=== PATIENT | female | born 1955 | race African-American/Black ===

== ENCOUNTER 2018-09-16 22:36 | Inpatient (IN) | payer MEDICARE, OTHER ==
[~2018-09-16] VITALS: Ht 172.2 cm; Wt 60.3 kg
[2018-09-16] MEDS ORDERED: SODIUM CHLORIDE 0.9% 500 ML IV ONE (23:26)
[2018-09-17 00:30] LABS: BASOPHILS % 0.4 % (0.0-2.0); EOSINOPHILS % 3.2 % (0.0-5.0); HEMATOCRIT. 39.9 % (36.0-48.0); HEMOGLOBIN. 13.5 g/dL (12.0-16.0); LYMPHOCYTES % 20.6 % (20.0-50.0); MEAN CORPUSCULAR HEMOGLOBIN 29.7 pg (28.0-32.0); MEAN CORPUSCULAR VOLUME 88.2 fL (81.0-99.0); MEAN PLATELET VOLUME 9.2 fl (7.4-10.4); MONOCYTES % 4.8 % (2.0-8.0); PLATELET 322 x1000/uL (130-400); RED BLOOD CELL COUNT 4.53 mill/uL (4.2-5.4); RED CELL DISTRIBUTION WIDTH 13.5 % (11.6-14.6)
[2018-09-17 00:41] LABS: CLARITY URINE CLOUDY (CLEAR); COLOR URINE YELLOW (YELLOW); KETONES URINE NEGATIVE (NEGATIVE); LEUKOCYTE ESTERASE URINE 1+ (NEGATIVE); NITRITE URINE NEGATIVE (NEGATIVE); OCCULT BLOOD URINE NEGATIVE (NEGATIVE); PH URINE 5.5 (4.5-8.0); PROTEIN URINE NEGATIVE (NEGATIVE); SPECIFIC GRAVITY URINE 1.016 (1.005-1.030); UROBILINOGEN URINE 0.2 E.U./dL (0.2-1.0)
[2018-09-17 00:49] LABS: CHLORIDE 105 mEq/L (98-107)
[2018-09-17 00:59] LABS: CREATINE KINASE 85 IU/L (26-192); ETHANOL BLOOD < 10 mg/dL
[2018-09-17 01:00] LABS: METHADONE URINE SCREEN NEGATIVE (NEGATIVE); OPIATES URINE SCREEN NEGATIVE (NEGATIVE); PHENCYCLIDINE URINE SCREEN NEGATIVE (NEGATIVE)
[2018-09-17] MEDS ORDERED: LEVOFLOXACIN 500MG PREMIX 100 ML IV ONE (01:00)
[2018-09-17 01:07] LABS: *AMPHETAMINES SCREEN URINE NEGATIVE (NEGATIVE); *BARBITURATES SCREEN URINE NEGATIVE (NEGATIVE); *BENZODIAZEPINES SCREEN URINE NEGATIVE (NEGATIVE); *COCAINE SCREEN URINE NEGATIVE (NEGATIVE); CANNABINOID URINE SCREEN PRESUMTIVE POSITIVE (NEGATIVE)
[2018-09-17] MEDS ORDERED: ACETAMINOPHEN 650MG SUPP PR PRN (07:00)
[2018-09-17] MEDS ORDERED: GUAIFENESIN 200MG/10ML SUGAR FREE UDC PO PRN (07:00)
[2018-09-17] MEDS ORDERED: DOCUSATE SODIUM 100MG CAPSULE PO PRN (07:00)
[2018-09-17] MEDS ORDERED: HYDROCODONE/ACETAMINOPHEN 5/325MG TABLET PO PRN (07:00)
[2018-09-17] MEDS ORDERED: CLONIDINE 0.1MG TABLET PO PRN (07:00)
[2018-09-17] MEDS ORDERED: IPRATROPIUM/ALBUTEROL 0.5-3(2.5)MG/3ML NEB INH PRN (07:00)
[2018-09-17] MEDS ORDERED: ONDANSETRON HCL 4MG/2ML INJ IV PRN (07:00)
[2018-09-17] MEDS ORDERED: ACETAMINOPHEN 650MG/20.3ML UDC GT PRN (07:00)
[2018-09-17] MEDS ORDERED: MAGNESIUM/ALUMINUM HYDROXIDE/SIMETHICONE 30ML UDC PO PRN (07:00)
[2018-09-17] MEDS ORDERED: NA PHOS,M-B/NA PHOS,DI-BA ENEMA 118ML PR PRN (07:00)
[2018-09-17] MEDS ORDERED: ACETAMINOPHEN 325MG TABLET PO PRN (07:00)
[2018-09-17 10:00] VITALS: BP 132/60
[2018-09-17] MEDS ORDERED: DEXTROSE 50% WATER 50ML SYRINGE IV PRN (10:15)
[2018-09-17 10:30] VITALS: BP 132/60
[2018-09-17] MEDS ORDERED: LEVOFLOXACIN 500MG TABLET PO SCH (11:00)
[2018-09-17] MEDS: BLOOD SUGAR DIAGNOSTIC STRIP TEST SCH ×3 (11:54→20:31)
[2018-09-17] MEDS: SODIUM CHLORIDE 0.9% 1,000 ML IV SCH (12:03)
[2018-09-17 12:20] VITALS: BP 136/77
[2018-09-17] MEDS: ENOXAPARIN 40MG/0.4ML SYR SUBCUT SCH (12:35)
[2018-09-17] MEDS: INSULIN LISPRO 100 UNITS/ML SUBCUT SCH ×3 (12:40→20:40)
[2018-09-17] MEDS: SODIUM CHLORIDE 0.9% INJ 3ML FLUSH IVF SCH ×2 (14:00→20:31)
[2018-09-17] MEDS ORDERED: POTASSIUM CHLORIDE 20MEQ/PACKET PO NR (14:45)
[2018-09-17 15:10] LABS: CHLORIDE 109 mEq/L (98-107)
[2018-09-17 15:17] LABS: CREATINE KINASE 62 IU/L (26-192); CREATINE KINASE MB FRACTION < 1.0 ng/mL (0.5-3.6); HDL CHOLESTEROL 97 mg/dL (40-59); LDL CHOLESTEROL 101 mg/dL (5-100)
[2018-09-17 15:44] LABS: BASOPHILS % 0.8 % (0.0-2.0); HEMOGLOBIN. 11.6 g/dL (12.0-16.0); LYMPHOCYTES % 29.9 % (20.0-50.0); MEAN CORPUSCULAR HEMOGLOBIN 29.2 pg (28.0-32.0); MEAN CORPUSCULAR VOLUME 88.3 fL (81.0-99.0); MEAN PLATELET VOLUME 9.5 fl (7.4-10.4); MONOCYTES % 6.4 % (2.0-8.0); NEUTROPHILS % 58.9 % (40.0-76.0); PLATELET 266 x1000/uL (130-400); RED BLOOD CELL COUNT 3.96 mill/uL (4.2-5.4); RED CELL DISTRIBUTION WIDTH 13.4 % (11.6-14.6)
[2018-09-17 16:00] VITALS: BP 133/70
[2018-09-17 18:00] VITALS: BP 128/76
[2018-09-17 20:00] VITALS: BP 134/65
[2018-09-18] VITALS: BP 121/67
[2018-09-18] MEDS: SODIUM CHLORIDE 0.9% 1,000 ML IV SCH ×2 (03:35→19:20)
[2018-09-18 04:00] VITALS: BP 123/78
[2018-09-18 06:40] LABS: BASOPHILS % 0.6 % (0.0-2.0); EOSINOPHILS % 6.9 % (0.0-5.0); HEMATOCRIT. 38.8 % (36.0-48.0); HEMOGLOBIN. 12.7 g/dL (12.0-16.0); LYMPHOCYTES % 43.9 % (20.0-50.0); MEAN CORPUSCULAR HEMOGLOBIN 29.3 pg (28.0-32.0); MEAN CORPUSCULAR VOLUME 89.7 fL (81.0-99.0); MEAN PLATELET VOLUME 9.2 fl (7.4-10.4); MONOCYTES % 6.1 % (2.0-8.0); NEUTROPHILS % 42.5 % (40.0-76.0); PLATELET 239 x1000/uL (130-400); RED BLOOD CELL COUNT 4.32 mill/uL (4.2-5.4); RED CELL DISTRIBUTION WIDTH 13.5 % (11.6-14.6)
[2018-09-18] MEDS: SODIUM CHLORIDE 0.9% INJ 3ML FLUSH IVF SCH ×3 (06:42→22:37)
[2018-09-18] MEDS: BLOOD SUGAR DIAGNOSTIC STRIP TEST SCH ×4 (06:42→21:00)
[2018-09-18 06:46] LABS: CHLORIDE 109 mEq/L (98-107)
[2018-09-18] MEDS: INSULIN LISPRO 100 UNITS/ML SUBCUT SCH ×4 (06:50→22:33)
[2018-09-18 06:56] LABS: CREATINE KINASE 51 IU/L (26-192); CREATINE KINASE MB FRACTION < 1.0 ng/mL (0.5-3.6); HDL CHOLESTEROL 91 mg/dL (40-59); LDL CHOLESTEROL 109 mg/dL (5-100)
[2018-09-18 08:00] VITALS: BP 142/73
[2018-09-18] MEDS: ENOXAPARIN 40MG/0.4ML SYR SUBCUT SCH (09:21)
[2018-09-18 12:00] VITALS: BP 143/77
[2018-09-18] MEDS: LEVOFLOXACIN 250MG TABLET PO SCH (12:54)
[2018-09-18 16:00] VITALS: BP 143/77
[2018-09-18 20:00] VITALS: BP 150/80
[2018-09-18] MEDS ORDERED: INSULIN GLARGINE UD 100 UNITS/ML SYR SUBCUT SCH (22:00)
[2018-09-19] VITALS: BP 156/66
[2018-09-19 04:00] VITALS: BP 131/72
[2018-09-19] MEDS: SODIUM CHLORIDE 0.9% INJ 3ML FLUSH IVF SCH ×2 (06:00→13:20)
[2018-09-19] MEDS: BLOOD SUGAR DIAGNOSTIC STRIP TEST SCH ×2 (06:45→12:04)
[2018-09-19 06:56] LABS: BASOPHILS % 0.7 % (0.0-2.0); EOSINOPHILS % 7.8 % (0.0-5.0); HEMATOCRIT. 37.7 % (36.0-48.0); HEMOGLOBIN. 12.6 g/dL (12.0-16.0); MEAN CORPUSCULAR HEMOGLOBIN 29.6 pg (28.0-32.0); MEAN CORPUSCULAR VOLUME 88.3 fL (81.0-99.0); MEAN PLATELET VOLUME 9.5 fl (7.4-10.4); MONOCYTES % 5.4 % (2.0-8.0); NEUTROPHILS % 42.1 % (40.0-76.0); PLATELET 249 x1000/uL (130-400); RED BLOOD CELL COUNT 4.27 mill/uL (4.2-5.4); RED CELL DISTRIBUTION WIDTH 13.6 % (11.6-14.6)
[2018-09-19 07:22] LABS: CHLORIDE 108 mEq/L (98-107)
[2018-09-19 08:00] VITALS: BP 127/57
[2018-09-19] MEDS: INSULIN LISPRO 100 UNITS/ML SUBCUT SCH ×2 (08:02→12:04)
[2018-09-19] MEDS ORDERED: LANTUSUD SUBCUT (08:30)
[2018-09-19] MEDS ORDERED: INSU100I26 SQ (08:30)
[2018-09-19] MEDS: LEVOFLOXACIN 250MG TABLET PO SCH (10:11)
[2018-09-19] MEDS: ENOXAPARIN 40MG/0.4ML SYR SUBCUT SCH (10:12)
[2018-09-19 12:00] VITALS: BP 140/75
[2018-09-19] MEDS: SODIUM CHLORIDE 0.9% 1,000 ML IV SCH (12:00)
[2018-09-19 14:02] VITALS: BP 140/75
[2018-09-19 16:00] VITALS: BP 135/70
[2018-09-19 16:33] LABS: CLARITY URINE CLEAR (CLEAR); COLOR URINE YELLOW (YELLOW); KETONES URINE NEGATIVE (NEGATIVE); LEUKOCYTE ESTERASE URINE NEGATIVE (NEGATIVE); NITRITE URINE NEGATIVE (NEGATIVE); OCCULT BLOOD URINE NEGATIVE (NEGATIVE); PROTEIN URINE NEGATIVE (NEGATIVE); SPECIFIC GRAVITY URINE 1.007 (1.005-1.030); UROBILINOGEN URINE 0.2 E.U./dL (0.2-1.0)
== END 2018-09-19 17:00 | disposition home or self-care (01) | DRG 73 ==
LOC: ER 22:36 → 5WST 09-17 01:50 → EDBEDREQTM 09-17 01:53 → EDBEDREQ 09-17 01:53 → ENRESERV 09-17 07:51
PROVIDERS: ADMIT Family Medicine; ATTEND Family Medicine
DX: G90.8 Other disorders of autonomic nervous system (principal); G93.41 Metabolic encephalopathy; N39.0 Urinary tract infection, site not specified; E10.65 Type 1 diabetes mellitus with hyperglycemia; F31.9 Bipolar disorder, unspecified; I10 Essential (primary) hypertension; E86.0 Dehydration; E87.6 Hypokalemia; E78.5 Hyperlipidemia, unspecified; Z79.4 Long term (current) use of insulin; Z86.011 Personal history of benign neoplasm of the brain; Z88.0 Allergy status to penicillin; Z88.5 Allergy status to narcotic agent
CPT/HCPCS: 36415; 71045; 80048; 80061; 80305; 80307; 80329; 82140; 82550; 82553; 82962; 83036; 83605; 83735; 83880; 84443; 84484; 93005; 93306; 93880; 96361; 96365; 99285; G0482; J1650; J1815; J1956; J7030; J7040

== ENCOUNTER 2018-11-29 07:39 | Inpatient (IN) | payer MEDICARE, OTHER ==
[~2018-11-29] VITALS: Ht 165.1 cm; Wt 60.3 kg
[2018-11-29] MEDS: BLOOD SUGAR DIAGNOSTIC STRIP TEST SCH ×2 (07:00→07:20)
[~2018-11-29 07:39] MED LIST: INSU100I26 SQ; LANTUSUD SUBCUT
[2018-11-29] MEDS ORDERED: KETOROLAC 60MG/2ML VIAL IM ONE (08:30)
[2018-11-29] MEDS ORDERED: SODIUM CHLORIDE 0.9% 1,000 ML IV ONE ×2 (09:40→12:18)
[2018-11-29 10:23] LABS: BASOPHILS % 0.7 % (0.0-2.0); EOSINOPHILS % 1.9 % (0.0-5.0); HEMATOCRIT. 39.7 % (36.0-48.0); MEAN CORPUSCULAR HEMOGLOBIN 29.2 pg (28.0-32.0); MEAN CORPUSCULAR VOLUME 88.9 fL (81.0-99.0); MEAN PLATELET VOLUME 9.2 fl (7.4-10.4); MONOCYTES % 4.9 % (2.0-8.0); NEUTROPHILS % 80.5 % (40.0-76.0); PLATELET 270 x1000/uL (130-400); RED BLOOD CELL COUNT 4.46 mill/uL (4.2-5.4)
[2018-11-29 10:24] LABS: CHLORIDE 103 mEq/L (98-107)
[2018-11-29] MEDS ORDERED: INSULIN REGULAR (HUMULIN R) 300UNITS/3ML SUBCUT ONE (10:45)
[2018-11-29 10:51] LABS: BETA HYDROXYBUTYRATE 3.3 mMol/L (0.0-0.3)
[2018-11-29] MEDS ORDERED: ONDANSETRON HCL 4MG/2ML INJ IV PRN (15:15)
[2018-11-29] MEDS ORDERED: ACETAMINOPHEN 325MG TABLET PO PRN (15:15)
[2018-11-29] MEDS ORDERED: CLONIDINE 0.1MG TABLET PO PRN (15:15)
[2018-11-29] MEDS ORDERED: DEXTROSE 50% WATER 50ML SYRINGE IV PRN (15:15)
[2018-11-29 15:37] LABS: CLARITY URINE CLEAR (CLEAR); COLOR URINE YELLOW (YELLOW); KETONES URINE 1+ (NEGATIVE); LEUKOCYTE ESTERASE URINE NEGATIVE (NEGATIVE); NITRITE URINE NEGATIVE (NEGATIVE); OCCULT BLOOD URINE NEGATIVE (NEGATIVE); PROTEIN URINE NEGATIVE (NEGATIVE); SPECIFIC GRAVITY URINE 1.024 (1.005-1.030); UROBILINOGEN URINE 0.2 E.U./dL (0.2-1.0)
[2018-11-29 15:49] LABS: *AMPHETAMINES SCREEN URINE NEGATIVE (NEGATIVE); *BARBITURATES SCREEN URINE NEGATIVE (NEGATIVE); *BENZODIAZEPINES SCREEN URINE NEGATIVE (NEGATIVE); *COCAINE SCREEN URINE NEGATIVE (NEGATIVE); METHADONE URINE SCREEN NEGATIVE (NEGATIVE); OPIATES URINE SCREEN NEGATIVE (NEGATIVE)
[2018-11-29 15:50] LABS: CANNABINOID URINE SCREEN PRESUMTIVE POSITIVE (NEGATIVE); PHENCYCLIDINE URINE SCREEN NEGATIVE (NEGATIVE)
[2018-11-29] MEDS ORDERED: KETOROLAC 30MG/ML VIAL IV PRN (17:05)
[2018-11-29] MEDS: INSULIN LISPRO 100 UNITS/ML SUBCUT SCH ×2 (21:00→22:00)
[2018-11-29] MEDS ORDERED: PRAV10TA35 MT (23:22)
[2018-11-29] MEDS ORDERED: LISI2.5T47 MT (23:22)
[2018-11-29] MEDS ORDERED: INSU100C6 SQ (23:22)
[2018-11-30] VITALS: BP 110/83
[2018-11-30] MEDS: INSULIN GLARGINE UD 100 UNITS/ML SYR SUBCUT SCH ×2 (00:18→10:36)
[2018-11-30] MEDS: AMLODIPINE 5MG TABLET PO SCH ×2 (00:19→08:46)
[2018-11-30 00:23] VITALS: BP 149/87
[2018-11-30 04:00] VITALS: BP 113/88
[2018-11-30 06:21] LABS: BASOPHILS % 0.7 % (0.0-2.0); HEMOGLOBIN. 11.8 g/dL (12.0-16.0); LYMPHOCYTES % 30.9 % (20.0-50.0); MEAN CORPUSCULAR HEMOGLOBIN 28.8 pg (28.0-32.0); MEAN CORPUSCULAR VOLUME 87.7 fL (81.0-99.0); MONOCYTES % 8.4 % (2.0-8.0); PLATELET 250 x1000/uL (130-400); RED CELL DISTRIBUTION WIDTH 16.3 % (11.6-14.6)
[2018-11-30 06:37] LABS: CHLORIDE 106 mEq/L (98-107)
[2018-11-30 08:55] VITALS: BP 136/70
[2018-11-30 12:00] VITALS: BP 130/74
[2018-11-30] MEDS: BLOOD SUGAR DIAGNOSTIC STRIP TEST SCH ×2 (12:20→12:22)
[2018-11-30] MEDS: INSULIN LISPRO 100 UNITS/ML SUBCUT SCH ×2 (12:22→12:50)
== END 2018-11-30 14:13 | disposition home or self-care (01) | DRG 556 ==
LOC: ER 07:39 → 6EST 13:29 → ENRESERV 17:54
PROVIDERS: ADMIT Internal Medicine; ATTEND Internal Medicine
DX: M25.511 Pain in right shoulder (principal); I16.0 Hypertensive urgency; I10 Essential (primary) hypertension; E11.65 Type 2 diabetes mellitus with hyperglycemia; F12.90 Cannabis use, unspecified, uncomplicated; E66.9 Obesity, unspecified; Z68.22 Body mass index [BMI] 22.0-22.9, adult; Z88.0 Allergy status to penicillin; Z88.5 Allergy status to narcotic agent; Z79.4 Long term (current) use of insulin
CPT/HCPCS: 36415; 73030; 80048; 80305; 82010; 82962; 93970; 96374; 99285; J1815; J1885; J7030